=== PATIENT | male | born 1985 | race Caucasian/White ===

== ENCOUNTER 2017-12-14 08:33 | Inpatient (IN) | payer OTHER ==
[2017-12-14] MEDS ORDERED: FENTANYL CITRATE INJ/PF 100 MCG/2 ML AMPUL ONE ×2 (08:49→09:02)
[2017-12-14] MEDS ORDERED: CEFAZOLIN 2 GM/D5W RTU 2 GM/50 ML RTUPB IV ONE (08:49)
[2017-12-14] MEDS ORDERED: FENTANYL CITRATE INJ/PF 100 MCG/2 ML AMPUL IV ONE (08:49)
[2017-12-14] MEDS ORDERED: NORMAL SALINE 1000 ML 1,000 ML IV ONE ×2 (08:50→12:30)
[2017-12-14] MEDS ORDERED: DIPH/PERTUSS(ACELL)/TETANUS VAC/PF 0.5 ML SYR (>=10YO) IM ONE (08:50)
[2017-12-14 09:17] LABS: INTERNATIONAL RATION (INR) 1.02
[2017-12-14 09:19] LABS: ABSOLUTE EOSINOPHILS # (AUTO) 0.3 10^3/uL (0.0-0.6); ABSOLUTE LYMPHOCYTES (AUTO) 1.7 10^3/uL (0.5-4.7); ABSOLUTE MONOCYTES (AUTO) 0.6 10^3/uL (0.1-1.4); ABSOLUTE NEUT (AUTO) 2.4 10^3/uL (1.7-8.2); BASOPHILS % (AUTO) 0.5 % (0-2); EOSINOPHILS % (AUTO) 6.1 % (0-6); HEMATOCRIT 39.4 % (37.9-51.0); HEMOGLOBIN 13.5 g/dL (13.5-17.0); LYMPHOCYTES % (AUTO) 33.7 % (13-45); MEAN CORPUSCULAR HGB CONC 34.4 g/dL (32.0-36.0); MEAN CORPUSCULAR VOLUME 102 fl (80-97); MONOCYTES % (AUTO) 12.6 % (3-13); PLATELET COUNT 344 10^3/uL (150-450); RED BLOOD COUNT 3.87 10^6/uL (4.35-5.55); RED CELL DISTRIBUTION WIDTH 13.1 % (11.5-14.0); SEGMENTED NEUTROPHILS % (AUTO) 47.1 % (42-78); TOTAL CELLS COUNTED % (AUTO) 100 %; WHITE BLOOD COUNT 5.1 10^3/uL (4.0-10.5)
[2017-12-14 09:22] LABS: ALANINE AMINOTRANSFERASE 40 U/L (21-72); ALBUMIN 4.1 g/dL (3.5-5.0); ALKALINE PHOSPHATASE 58 U/L (38-126); ANION GAP 9 (5-19); ASPARTATE AMINO TRANSFERASE 38 U/L (17-59); BILIRUBIN,DIRECT 0.2 mg/dL (0.0-0.4); BILIRUBIN,TOTAL 0.6 mg/dL (0.2-1.3); BLOOD UREA NITROGEN 14 mg/dL (7-20); CARBON DIOXIDE 28 mmol/L (22-30); CHLORIDE 105 mmol/L (98-107); GLUCOSE 122 mg/dL (75-110); SODIUM 141.6 mmol/L (137-145)
[2017-12-14] MEDS ORDERED: FENTANYL CITRATE INJ/PF 100 MCG/2 ML AMPUL IV PRN ×4 (09:48→15:07)
[2017-12-14] MEDS ORDERED: LIDOCAINE 1%/EPINEPHRINE INJ 20 ML VIAL INJ ONE ×2 (09:52→09:55)
[2017-12-14] MEDS ORDERED: HYDROMORPHONE HCL INJ/PF 2 MG/ML AMPULE IV ONE (11:06)
--- NOTE | 2017-12-14 11:09 | ER Document Report ---
ED General - General Chief Complaint: Leg Injury Stated Complaint: LEG INJURY - HPI Patient complains to provider of: Pain to the bilateral lower extremities Onset: Other - 32-year-old man who presents for evaluation after having a low arch concrete slab fall onto his legs. He was trying to pour it over at which time it tipped over and landed over both of his lower extremities. He did not hit his head, did not lose consciousness did not have any pain in the pelvis at this time. He was taken immediately thereafter the emergency room, nothing has seemed to make it better movement seems to make it worse he has not tried to weight-bear since it happened. He has never had anything like this happen before he has not taken anything to try and help with it. - Related Data Allergies/Adverse Reactions: No Known Allergies Allergy (Verified 12/14/17 10:45) Past Medical History - General Information source: Patient - Social History Smoking Status: Current Every Day Smoker Cigarette use (# per day): Yes Chew tobacco use (# tins/day): No Smoking Education Provided: Yes Frequency of alcohol use: Occasional Drug Abuse: None Family History: None - Medical History Medical History: Negative Review of Systems - Review of Systems Musculoskeletal: See HPI -: Yes All other systems reviewed and negative Physical Exam - Vital signs Vitals: Resp BP Pulse Ox 19 108/74 100 12/14/17 08:48 12/14/17 08:48 12/14/17 08:48 - General General appearance: Alert In distress: Mild - HEENT Head: Normocephalic, Atraumatic Eyes: Normal Conjunctiva: Normal Cornea: Normal Extraocular movements intact: Yes - Respiratory Respiratory status: No respiratory distress Chest status: Nontender Breath sounds: Normal Chest palpation: Normal - Cardiovascular Rhythm: Regular Heart sounds: Normal auscultation Murmur: No - Abdominal Inspection: Normal Distension: No distension Bowel sounds: Normal Tenderness: Nontender - Genitourinary Inspection: Normal - Back Back: Normal, Nontender - No cervical midline tenderness no thoracic midline tenderness no lumbar midline tenderness - Extremities General upper extremity: Normal inspection General lower extremity: Other - The lower extremities are symmetric, the pelvis is stable The right quadriceps demonstrates an abrasion in the mid thigh , there is an abrasion over the knee, there is a large avulsion of tissue extending from the lateral malleolus posteriorly towards the Achilles with a large gaping wound. There is a periosteum exposed over the calcaneus. The left lower extremity demonstrates a normal quadriceps normal range of motion at the hip, there is a large evulsion of tissue with macerated edges that is linear approximately 8 cm in length over the mid san, there is marked swelling inferior to the level of the knee, there is intact capillary refill and a strong PT pulse bilaterally as well as brisk capillary refill in all digits. Course - Re-evaluation Re-evalutation: 12/14/17 13:37 This man presented as a trauma evaluation, he is brought back emergently to resuscitation bay. He underwent standard, he was breathing spontaneously with an airway intact and pulses in all extremities appreciable. On secondary survey this patient was identified to have obvious injury to the lower extremities inferior to the level of the knee. X-rays were obtained which demonstrated what appeared to be a tib-fib fracture on the left side which was open as well as a large avulsion of skin along the right ankle. The patient was given narcotic pain medication. Decision was made for this patient to undergo further imaging with definitive x- rays of higher quality than the portable. Patient was transitioned to x-ray suite underwent imaging. Following x-ray imaging lower extremities incision is made to consult orthopedics as it was identified that is isolated injuries seem to be only bony. Spoke to Dr. Montero jewelry salesperson who agreed that this patient would need emergent fixation of his tibia on the left side. During this time the patient's compartment continued remained soft though he was having some pain. He had pulses appreciable in both extremities on reexamination. Patient was subsequently consented and taken to the operating room. During this time he received 2 g of Ancef 2 L of normal saline as well as a tetanus update. He had a repaired right heel injury. Both his extremities were splinted in place. At the time of admission he is hemodynamically stable. - Vital Signs Vital signs: Temp Pulse Resp BP Pulse Ox 97.3 F 13 106/64 99 12/14/17 14:01 12/14/17 14:01 12/14/17 14:00 12/14/17 14:01 - Laboratory Result Diagrams: 12/14/17 08:35 12/14/17 08:35 Laboratory results interpreted by me: 12/14/17 12/14/17 08:35 08:35 RBC 3.87 L MCV 102 H MCH 35.0 H Eosinophils % 6.1 H Glucose 122 H Procedures - Laceration/Wound Repair Right Lateral Ankle Time completed: 02:00 Wound length (cm): 12 Wound's Depth, Shape: Irregular, Flap Laceration pre-procedure: Sterile PPE donned, Sterile drapes applied Anesthetic type: 1% Lidocaine w/epi Volume Anesthetic (mLs): 10 Wound explored: Clean, No foreign body removed Irrigated w/ Saline (mLs): 2,000 Wound Debrided: Minimal Wound Repaired With: Sutures Suture Size/Type: 4:0 Number of Sutures: 12 Post-procedure NV exam normal: Yes Complications: No Discharge - Discharge Clinical Impression: Tibia fracture, Ankle fracture, bimalleolar, closed, Contusion of right ankle Condition: Good Disposition: ADMITTED INPATIENT Admitting Provider: marisol Unit Admitted: OR
--- NOTE | 2017-12-14 11:11 | RADIOLOGY REPORT (SQ) ---
EXAM DESCRIPTION: ANKLE RIGHT COMPLETE COMPLETED DATE/TIME: 12/14/2017 10:53 am REASON FOR STUDY: crush injury COMPARISON: None. NUMBER OF VIEWS: Three views. TECHNIQUE: AP, lateral, and oblique radiographic images acquired of the right ankle. LIMITATIONS: None. FINDINGS: MINERALIZATION: Normal. BONES: There is some lucency in the calcaneus, but no cortical disruption is appreciated. JOINTS: No effusions. SOFT TISSUES: Soft tissue injury. OTHER: No other significant finding. IMPRESSION: There is some lucency in the calcaneus. This may be secondary to soft tissue injury ove rlying it. Consider CT if there is clinical concern for calcaneal fracture. TECHNICAL DOCUMENTATION: JOB ID: [id number] [employer]- All Rights Reserved Reading location - IP/workstation name: [email or web address]
--- NOTE | 2017-12-14 11:14 | RADIOLOGY REPORT (SQ) ---
EXAM DESCRIPTION: TIB FIB BILAT 2 VIEWS COMPLETED DATE/TIME: 12/14/2017 10:53 am REASON FOR STUDY: Trauma COMPARISON: None. NUMBER OF VIEWS: Two views. TECHNIQUE: Two radiographic images acquired of the right and left tibia and fibula to include the kn ee and ankle in at least one projection. LIMITATIONS: None. FINDINGS: RIGHT: MINERALIZATION: Normal. BONES: No acute fracture or dislocation. No worrisome bone lesions. SOFT TISSUES: There is a laceration over the right dorsal and lateral ankle, without radiopaque forei gn body. There is gauze over the open wound. OTHER: No other significant finding. LEFT: MINERALIZATION: Normal. BONES: Acute nonangulated nondisplaced spiral fracture distal left tibia diaphysis extending through the metaphysis into the articular surface. Small amount of air in the tibiotalar joint. There is also an acute transverse fracture through the mid diaphysis left tibia, nonangulated nondisp laced. Acute transverse fracture distal fibular metaphysis without gross malalignment at the ankle mortise SOFT TISSUES: There is a soft tissue wound through the medial and posterior calf soft tissues with ex tensive soft tissue air. There is air in the tibiotalar joint on the lateral view. Minimal debris i s present over the lateral aspect mid 3rd calf, could represent debris on the patient's skin. OTHER: No other significant finding. IMPRESSION: No acute fracture over the right tibia/ fibula. Acute fractures of the left tibial mid diaphysis, and left tibia distal diaphysis/metaphysis with ext ension into the tibial articular surface and intra-articular air Hairline nondisplaced acute nondisplaced nonangulated distal fibular fracture TECHNICAL DOCUMENTATION: JOB ID: [id number] [employer]- All Rights Reserved Reading location - IP/workstation name: [email or web address]
--- NOTE | 2017-12-14 11:16 | RADIOLOGY REPORT (SQ) ---
EXAM DESCRIPTION: ANKLE LEFT COMPLETE COMPLETED DATE/TIME: 12/14/2017 10:53 am REASON FOR STUDY: crush injury COMPARISON: Left tibia and fibula two views same date NUMBER OF VIEWS: Three views. TECHNIQUE: AP, lateral, and oblique radiographic images acquired of the left ankle. LIMITATIONS: None. FINDINGS: MINERALIZATION: Normal. BONES: Acute spiral fracture distal left tibial diaphysis and metaphysis, with extension into the tib iotalar joint, tibial articular surface. There is a small amount of air in the tibiotalar joint. Acute transverse nondisplaced distal fibular metaphysis fracture. Best shown on the AP view marked w ith an arrow. JOINTS: Left ankle joint effusion with air bubbles. No malalignment at the ankle mortise SOFT TISSUES: Medial left calf soft tissue air. No radiopaque foreign body OTHER: No other significant finding. IMPRESSION: Acute spiral fracture distal left tibial diaphysis and metaphysis with extension into th e tibial plafond. Grossly nondisplaced nonangulated. Intra-articular air at the ankle joint without disruption of the ankle mortise alignment Acute transverse nondisplaced distal fibular metaphysis fracture TECHNICAL DOCUMENTATION: JOB ID: [id number] [employer]- All Rights Reserved Reading location - IP/workstation name: [email or web address]
--- NOTE | 2017-12-14 11:18 | RADIOLOGY REPORT (SQ) ---
EXAM DESCRIPTION: FEMUR RIGHT COMPLETED DATE/TIME: 12/14/2017 10:53 am REASON FOR STUDY: crush injury COMPARISON: None. NUMBER OF VIEWS: Two views. TECHNIQUE: Two radiographic images acquired of the right femur to include hip and knee in at least o ne projection. LIMITATIONS: None. FINDINGS: MINERALIZATION: Normal. BONES: No acute fracture. No worrisome bone lesions. SOFT TISSUES: No obvious swelling or foreign body. OTHER: No other significant finding. IMPRESSION: NEGATIVE STUDY OF THE RIGHT FEMUR. NO RADIOGRAPHIC EVIDENCE OF ACUTE INJURY. TECHNICAL DOCUMENTATION: JOB ID: [id number] [employer]- All Rights Reserved Reading location - IP/workstation name: [email or web address]
--- NOTE | 2017-12-14 11:21 | RADIOLOGY REPORT (SQ) ---
EXAM DESCRIPTION: FOOT LEFT COMPLETE COMPLETED DATE/TIME: 12/14/2017 10:53 am REASON FOR STUDY: crush injury COMPARISON: Left tibia and fibula films, left ankle films same date NUMBER OF VIEWS: Three views. TECHNIQUE: AP, lateral and oblique radiographic images acquired of the left foot. LIMITATIONS: None. FINDINGS: MINERALIZATION: Normal. BONES: Acute distal tibia and fibula fractures, please see ankle films for further details. The talu s, calcaneus, tarsal bones, metatarsals and phalanges are intact. JOINTS: There is air and fluid in the tibiotalar joint SOFT TISSUES: No soft tissue swelling. No foreign body. OTHER: No other significant finding. IMPRESSION: Distal left tibia and fibula acute fractures, please see left ankle and left tibia/fibul a of report from earlier today. Small amount of air and fluid in the tibiotalar joint No acute displaced fracture of the bones of the left foot TECHNICAL DOCUMENTATION: JOB ID: [id number] [employer]- All Rights Reserved Reading location - IP/workstation name: [email or web address]-RR
--- NOTE | 2017-12-14 11:22 | RADIOLOGY REPORT (SQ) ---
EXAM DESCRIPTION: FOOT RIGHT COMPLETE COMPLETED DATE/TIME: 12/14/2017 10:53 am REASON FOR STUDY: crush injury COMPARISON: Right tibia and fibula films same date NUMBER OF VIEWS: Three views. TECHNIQUE: AP, lateral and oblique radiographic images acquired of the right foot. LIMITATIONS: None. FINDINGS: MINERALIZATION: Normal. BONES: No acute fracture or dislocation. No worrisome bone lesions. JOINTS: No effusions. SOFT TISSUES: There is a soft tissue laceration near the Achilles attachment to the calcaneus. No ra diopaque foreign body. There is soft tissue gas tracking along the lateral and plantar aspect of the right foot soft tissues. OTHER: No other significant finding. IMPRESSION: No acute fracture. Soft tissue laceration near the Achilles attachment to the calcaneus without radiopaque foreign body. Right foot soft tissue gas is present. TECHNICAL DOCUMENTATION: JOB ID: [id number] [employer]- All Rights Reserved Reading location - IP/workstation name: [email or web address]
[2017-12-14] MEDS ORDERED: SUCCINYLCHOLINE CHLORIDE INJ 200 MG/10 ML VIAL ONE (11:56)
[2017-12-14] MEDS ORDERED: MORPHINE SULFATE 10 MG/ML INJ IV PRN ×3 (13:32→18:05)
[2017-12-14] MEDS ORDERED: BUPIVACAINE HCL 0.5 % INJ/PF 30 ML SDV ONE ×2 (13:48→14:47)
[2017-12-14] MEDS ORDERED: FENTANYL CITRATE INJ/PF 250 MCG/5 ML AMPULE ONE (13:59)
[2017-12-14] MEDS ORDERED: KETOROLAC TROMETHAMINE 60 MG/2 ML SDV ONE (13:59)
[2017-12-14] MEDS ORDERED: LIDOCAINE 2% INJ-PF (20 MG/ML) 10 ML AMPUL ONE (13:59)
[2017-12-14] MEDS ORDERED: PROPOFOL INJ 200 MG/20 ML VIAL IV ONE (14:00)
[2017-12-14] MEDS ORDERED: ACETAMINOPHEN 1,000 MG/100 ML RTUPB IV ONE (14:00)
[2017-12-14] MEDS ORDERED: ONDANSETRON HCL INJ/PF 4 MG/2 ML SDV ONE (14:00)
[2017-12-14] MEDS ORDERED: MIDAZOLAM 2 MG/2 ML INJ ONE (14:00)
[2017-12-14] MEDS ORDERED: DEXAMETHASONE SOD PHOSPHATE INJ 4 MG/1 ML VIAL ONE (14:00)
--- NOTE | 2017-12-14 14:28 | PDOC H&P ---
History of Present Illness Admission Date/PCP: 12/14/17 11:26 Patient complains of: Left leg pain, right foot pain History of Present Illness: DIAZ MARR is a 32 year old male who was at work when a ow arch concrete slab mold fell onto his bilateral lower extremities causing a crush injury. Patient was brought by EMS. Was seen and evaluated by the emergency room which demonstrated fractures of his left lower extremity with an open wound anteriorly along with a open wound along the right foot. Patient denied pelvic discomfort. Denied abdominal discomfort. No headache dizziness or loss of consciousness. While in the emergency room patient received tetanus and Ancef the wounds were irrigated and patient was placed in a splint on his left and the right foot wound was reapproximated and placed in a splint. Patient states his pain is currently controlled with Dilaudid. He does have some numbness in the left and right foot. Pain initially was 10/10. Social History Information Source: Patient Smoking Status: Current Every Day Smoker Frequency of Alcohol Use: Rare Hx Recreational Drug Use: No Hx Prescription Drug Abuse: No Family History Parental Family History Reviewed: No Children Family History Reviewed: No Sibling(s) Family History Reviewed.: No Medication/Allergy Home Medications: No Home Medications 12/14/17 Allergies/Adverse Reactions: No Known Allergies Allergy (Verified 12/14/17 10:45) Review of Systems Constitutional: ABSENT: chills, fever(s), headache(s), weight gain, weight loss Eyes: ABSENT: visual disturbances Ears: ABSENT: hearing changes Cardiovascular: ABSENT: chest pain, dyspnea on exertion, edema, orthropnea, palpitations Respiratory: ABSENT: cough, hemoptysis Gastrointestinal: ABSENT: abdominal pain, constipation, diarrhea, hematemesis, hematochezia, nausea, vomiting Genitourinary: ABSENT: dysuria, hematuria Musculoskeletal: PRESENT: as per HPI Integumentary: ABSENT: rash, wounds Neurological: ABSENT: abnormal gait, abnormal speech, confusion, dizziness, focal weakness, syncope Psychiatric: ABSENT: anxiety, depression, homidical ideation, suicidal ideation Endocrine: ABSENT: cold intolerance, heat intolerance, menstrual abnormalities, polydipsia, polyuria Hematologic/Lymphatic: ABSENT: easy bleeding, easy bruising, lymphadenopathy Physical Exam Vital Signs: Temp Pulse Resp BP Pulse Ox 16 120/82 100 12/14/17 10:01 12/14/17 10:01 12/14/17 10:01 General appearance: PRESENT: no acute distress, well-developed, well-nourished Head exam: PRESENT: atraumatic, normocephalic Eye exam: PRESENT: conjunctiva pink, EOMI, PERRLA. ABSENT: scleral icterus Ear exam: PRESENT: normal external ear exam Mouth exam: PRESENT: moist, tongue midline Neck exam: PRESENT: full ROM. ABSENT: carotid bruit, JVD, lymphadenopathy, thyromegaly Respiratory exam: PRESENT: unlabored Cardiovascular exam: PRESENT: RRR. ABSENT: diastolic murmur, rubs, systolic murmur Pulses: PRESENT: normal dorsalis pedis pul, +2 pedal pulses bilateral Vascular exam: PRESENT: normal capillary refill GI/Abdominal exam: PRESENT: normal bowel sounds, soft. ABSENT: distended, guarding, mass, organolmegaly, rebound, tenderness Rectal exam: PRESENT: deferred Musculoskeletal exam: PRESENT: other Neurological exam: PRESENT: alert, awake, oriented to person, oriented to place , oriented to time, oriented to situation, CN II-XII grossly intact. ABSENT: motor sensory deficit Psychiatric exam: PRESENT: appropriate affect, normal mood. ABSENT: homicidal ideation, suicidal ideation Skin exam: PRESENT: abrasion - Left lower extremity: Splint clean/dry/intact splint not removed given high risk of infection with open fracture. intact flexion/extension of the toes. No sensory deficits. Cap refill less than 2 seconds. Dorsalis pedis pulse 2+. Compartments soft and compressible no sign of compartment syndrome. Right lower extremity: C-shaped laceration on the lateral aspect of the calcaneus down to periosteum but no evidence of fracture. No involvement of the Achilles tendon appreciated. Intact plantar flexion/ dorsiflexion. No sensory deficits. Bilateral upper extremities: No tenderness to palpation. Full range of motion., dry, intact, warm. ABSENT: cyanosis, rash Results Impressions: Tibia/Fibula X-Ray 12/14/17 00:00 IMPRESSION: No acute fracture over the right tibia/ fibula. Acute fractures of the left tibial mid diaphysis, and left tibia distal diaphysis/metaphysis with extension into the tibial articular surface and intra- articular air Hairline nondisplaced acute nondisplaced nonangulated distal fibular fracture Ankle X-Ray 12/14/17 08:47 IMPRESSION: Acute spiral fracture distal left tibial diaphysis and metaphysis with extension into the tibial plafond. Grossly nondisplaced nonangulated. Intra-articular air at the ankle joint without disruption of the ankle mortise alignment Acute transverse nondisplaced distal fibular metaphysis fracture Femur X-Ray 12/14/17 08:47 IMPRESSION: NEGATIVE STUDY OF THE RIGHT FEMUR. NO RADIOGRAPHIC EVIDENCE OF ACUTE INJURY. Foot X-Ray 12/14/17 08:47 IMPRESSION: No acute fracture. Soft tissue laceration near the Achilles attachment to the calcaneus without radiopaque foreign body. Right foot soft tissue gas is present. Status: Image reviewed by me - Bilateral tibia-fibula radiographs demonstrate segmental tibial shaft fracture with posterior malleolus fracture. No evidence of medial or tibia-fibula clear space widening. No evidence of fracture right tibia-fibula. Bilateral ankle radiographs demonstrate nondisplaced transverse fracture of the distal fibula with associated posterior malleolar fracture no evidence of medial space widening. Bilateral hip radiographs demonstrate no evidence of fracture or dislocation. Assessment & Plan - Diagnosis (1) Fracture, posterior malleolus Qualifiers: Encounter type: initial encounter Fracture type: closed Is this a current diagnosis for this admission?: Yes (2) Open left tibial fracture Qualifiers: Encounter type: initial encounter Tibia location: shaft Open fracture type: open type I or II Fracture morphology: segmental Is this a current diagnosis for this admission?: Yes Plan: I have discussed treatment options with the patient he adequately relieved Ancef received Ancef and tetanus for his left open tibia fracture given the segmental nature of his fracture and increased risk of fracture instability I have recommended operative treatment which includes irrigation and debridement of the left tibia with intramedullary nail. Concomitantly we will proceed with open reduction total fixation of the left ankle including the posterior malleolus and possible distal fibula pending intraoperative instability. Risks and benefits of the surgical procedure have been explained to the patient risks including neurovascular risk, postoperative pain, postoperative knee pain, posttraumatic arthritis, infection, need for future surgical intervention. Also given the tibia fracture patient understands this is high risk for compartment syndrome and fasciotomies may be required either intraoperatively or in the future if compartment syndrome develops. As for the patient's right foot wound it was reapproximated by the emergency room will continue to monitor but patient was placed in a splint today. Anticipate 72 hours of antibiotics and possible discharge to home pending patient's pain control. Patient has verbalized understanding of the current plan and consented for the above procedure. Also discussed the importance of tobacco cessation and its negative effects on overall health, wound and fracture healing (3) Laceration of right foot Is this a current diagnosis for this admission?: Yes
[2017-12-14] MEDS ORDERED: MEPERIDINE HCL/PF INJ 25 MG/1 ML DISP.SYRIN IV PRN (15:07)
[2017-12-14] MEDS ORDERED: PROMETHAZINE HCL INJ 25 MG/1 ML VIAL IV PRN ×2 (15:07)
[2017-12-14] MEDS ORDERED: DIPHENHYDRAMINE HCL 50 MG/ML VIAL IV PRN (15:07)
[2017-12-14] MEDS ORDERED: OXYCODONE-ACETAMINOPHEN 5-325 MG TABLET PO PRN ×2 (15:07)
[2017-12-14] MEDS ORDERED: CEFAZOLIN INJ 1 GM VIAL ONE (15:25)
[2017-12-14] MEDS ORDERED: ZOLPIDEM TARTRATE 5 MG TABLET PO PRN (18:01)
--- NOTE | 2017-12-14 18:01 | Operative Report ---
Operative Report DATE OF SURGERY: 12/14/17 PREOPERATIVE DIAGNOSIS: Left grade II open tibial shaft fracture. Left closed distal intra-articular tibial fracture. Left nondisplaced distal fibula fracture POSTOPERATIVE DIAGNOSIS: Same OPERATION: 1. Irrigation debridement left grade II open tibia fracture. 2. Intramedullary nail left tibial shaft fracture. 3. open reduction internal fixation posterior malleolus fracture. 4. Nonoperative treatment lateral malleolus fracture SURGEON: PARESH SELBY ANESTHESIA: GA COMPLICATIONS: None ESTIMATED BLOOD LOSS: 60 cc PROCEDURE: Indication for above procedure: 32-year-old male who sustained a crush injury to his left and right lower extremities after a cement slab molding fell. Patient was brought to emergency room where x-rays demonstrated a fracture of the tibial shaft with a open wound and associated distal fibular fracture and spiral distal tibia fracture with intra-articular extension. In the emergency room patient received Ancef and tetanus in area was irrigated and placed in a splint. Risks and benefits of operative versus nonoperative intervention were explained to the patient patient verbalized understanding consented for the operative procedure. Procedure in detail: Procedure In Detail: Patient was seen and evaluated in the preoperative holding area. The left lower extremity extremity was initialized and marked. Patient received additional 1 g of Ancef IV for bacterial prophylaxis. Patient was taken back to the operative room where transferred to the operative table and placed under general anesthesia. Once they were adequately anesthetized a nonsterile tourniquet was placed on the lower extremity. A surgical team debriefing was performed ensuring all instrumentation was available, the surgical procedure was discussed with possible concerns reviewed. The lower extremity was prepped with Betadine and draped in a sterile fashion. A timeout was done identifying correct patient, procedure and extremity everyone in attendance agree with this and verbalized no concerns. The extremity was exsanguinated the tourniquet was inflated to 300 mmHg. Medially at the transverse fracture site there was a 7 cm L-shaped laceration which connected with the deep bone involving a portion of the medial gastroc muscle. This area was copiously irrigated with normal saline. There was not gross contamination appreciated. Under C-arm fluoroscopy the posterior malleolus fragment was identified. A small stab incision was made anterior and blunt dissection was performed to the anterior surface of the tibia. Through a small poke hole posterior lateral reduction tenaculum was placed to reduce the posterior malleolus fragment reduction was obtained with no evidence of intra-articular diastases and intra- articular step-off less than 1 mm I then placed a guidewire through the drill guide to avoid irritation surrounding soft tissues and measured a 45 mm screw thus a 4.0 mm partially-threaded cancellus screws placed which provided interfragmentary compression to the posterior malleolar fragment there is no evidence of fragment instability. Longitudinal skin incision was made over the patellar tendon. Blunt dissection was performed. The peritenon was opened and the patellar tendon split midline. Under direct visualization the anterior aspect of the tibial plateau was identified and the guidewire for a [employer] T2 tibial IM nail was advanced centralized with a intramedullary canal on AP view and aiming slightly obliquely and posterior on lateral view. Once this was confirmed the opening reamer was utilized. The ball-tipped guidewire was then inserted and passed to the distal tibia central on AP and lateral view. The tourniquet was then deflated any bleeding was controlled with cautery. Reaming began with a 9.5 mm reamer reaming up to a 12 mm reamer. Given the associated fracture distally decision was made to proceed with a 10 mm nail to avoid displacement of the distal fracture. The nail was advanced past the transverse tibial fracture and oblique tibial fracture which extended into the articular surface C-arm fluoroscopy was obtained throughout insertion to avoid displacement of the articular fracture. AP and lateral views were then obtained confirming appropriate nail placement and height. The aiming arm was then placed proximally a small stab incision was made along the medial aspect and a medial to lateral static screw was placed. A second stab incision was made an oblique medial to lateral screw was placed in the proximal nail. The aiming arm was removed and multiple C-arm views were obtained confirming trajectory through the nail. While obtaining perfect circles a small stab incision was made distally blunt dissection was performed and a hemostat was used during drilling of the anterior to posterior screw the appropriate size 5 mm distal locking screw was placed. Via lateral perfect circles were obtained and 2x medial to lateral 5 mm distal locking screws were placed the most proximal distal locking screw providing interfragmentary compression to the fracture line within the sagittal plane. Final C-arm fluoroscopy was obtained proximally distally and at the fracture site confirming adequate reduction and appropriate size distal and proximal locking screws. Under live C-arm fluoroscopy external rotation stress was applied to the distal tibia to assure adequate stability of the syndesmosis articular tibial fracture and distal lateral malleolar fracture once this was confirmed I do not feel additional fixation within the fibula was required. The wounds were then copiously irrigated with normal saline. The patellar tendon was closed with interrupted 0 Vicryl suture. Subcutaneous tissues were closed with 4-0 Monocryl suture. Skin incisions were closed with derek. The medial open fracture wound was debrided any nonviable skin and muscle were excised and wound once again irrigated down to bone. Skin incision was closed with interrupted 3-0 nylon suture. Compartments were soft and compressible with minimal swelling no sign of compartment syndrome clinically. 30 cc of 0.5 % Marcaine without epinephrine was injected for postoperative pain control. Patient was placed in a well-padded sugar tong splint. Sponge counts, instrument counts, needle counts counts were correct. Patient was then awoken from anesthesia. Transferred from the operating room table to the operating room stretcher. There was no intraoperative complications patient tolerated procedure well stable to PACU. Postoperative plan: Patient will be admitted for 48 hours of IV antibiotics and then transitioned to p.o. antibiotics. Given his wound in his right lower extremity he will require wheelchair transportation until that wound is healed. Anticipate 6-10 weeks of nonweightbearing in the left lower extremity given the patient's tobacco history and nature of fracture. At follow-up visit in my office in 2 weeks patient will have radiographs of his left ankle, tibia-fibula and be placed in a short leg cast and then transition to a pneumatic walking 6 weeks postoperatively.
[2017-12-14] MEDS ORDERED: ONDANSETRON 4 MG TAB.RAPDIS PO PRN (18:05)
[2017-12-14] MEDS ORDERED: OXYCODONE HCL IR 5 MG TABLET PO PRN (18:05)
--- NOTE | 2017-12-14 18:51 | RADIOLOGY REPORT (SQ) ---
EXAM DESCRIPTION: NO CHG FLUORO; TIBIA FIBULA LEFT COMPLETED DATE/TIME: 12/14/2017 6:12 pm REASON FOR STUDY: LT TIB NAILING COMPARISON: None. FLUOROSCOPY TIME: 3.2 minutes 14 Images saved to PACS LIMITATIONS: None. PROCEDURE: Left tibial nailing FINDINGS: Images obtained with fluoro document placement of a long medullary lucinda through the tibia w ith screws proximally and distally. IMPRESSION: Left tibial nailing. Refer to operative note for further information. COMMENT: PQRS 6045F: Fluoroscopy time of the procedure is documented in the report. TECHNICAL DOCUMENTATION: JOB ID: [id number] [employer]- All Rights Reserved Reading location - IP/workstation name: [email or web address]
--- NOTE | 2017-12-14 18:51 | RADIOLOGY REPORT (SQ) ---
EXAM DESCRIPTION: NO CHG FLUORO; TIBIA FIBULA LEFT COMPLETED DATE/TIME: 12/14/2017 6:12 pm REASON FOR STUDY: LT TIB NAILING COMPARISON: None. FLUOROSCOPY TIME: 3.2 minutes 14 Images saved to PACS LIMITATIONS: None. PROCEDURE: Left tibial nailing FINDINGS: Images obtained with fluoro document placement of a long medullary lucinda through the tibia w ith screws proximally and distally. IMPRESSION: Left tibial nailing. Refer to operative note for further information. COMMENT: PQRS 6045F: Fluoroscopy time of the procedure is documented in the report. TECHNICAL DOCUMENTATION: JOB ID: [id number] [employer]- All Rights Reserved Reading location - IP/workstation name: [email or web address]
[2017-12-14] MEDS: OXYCODONE HCL SR 10 MG TABLET PO SCH (21:00)
[2017-12-14] MEDS: KETOROLAC TROMETHAMINE INJ/PF 30 MG/1 ML SDV IV SCH (23:34)
[2017-12-14] MEDS: CEFAZOLIN 2 GM/D5W RTU 2 GM/50 ML RTUPB IV SCH (23:34)
[2017-12-15] MEDS ORDERED: ACETAMINOPHEN 1,000 MG/100 ML RTUPB IV ONE (00:05)
[2017-12-15] MEDS: MORPHINE SULFATE 10 MG/ML INJ IV PRN ×3 (02:18→18:33)
[2017-12-15 04:39] LABS: HEMATOCRIT 32.6 % (37.9-51.0); MEAN CORPUSCULAR HEMOGLOBIN 35.4 pg (27.0-33.4); MEAN CORPUSCULAR HGB CONC 34.8 g/dL (32.0-36.0); MEAN CORPUSCULAR VOLUME 102 fl (80-97); PLATELET COUNT 250 10^3/uL (150-450); RED CELL DISTRIBUTION WIDTH 13.2 % (11.5-14.0); WHITE BLOOD COUNT 8.1 10^3/uL (4.0-10.5)
[2017-12-15 04:51] LABS: HEMOGLOBIN 11.3 g/dL (13.5-17.0)
[2017-12-15 04:56] LABS: ANION GAP 8 (5-19); BLOOD UREA NITROGEN 12 mg/dL (7-20); CARBON DIOXIDE 22 mmol/L (22-30); CHLORIDE 107 mmol/L (98-107); GLUCOSE 123 mg/dL (75-110); POTASSIUM 4.4 mmol/L (3.6-5.0); SODIUM 136.8 mmol/L (137-145)
[2017-12-15] MEDS: CEFAZOLIN 2 GM/D5W RTU 2 GM/50 ML RTUPB IV SCH ×3 (06:31→18:34)
[2017-12-15] MEDS: KETOROLAC TROMETHAMINE INJ/PF 30 MG/1 ML SDV IV SCH ×4 (06:32→23:59)
--- NOTE | 2017-12-15 10:10 | PDOC PROGRESS REPORT ---
Subjective Progress Note for:: 12/15/17 Subjective:: Patient lying in bed comfortably. Patient has been taking oxycodone and morphine with relief. Pain tolerable. Denies fever chills or sweats. Reason For Visit: LEFT TIBIA FRACTURES Physical Exam Vital Signs: Temp Pulse Resp BP Pulse Ox 97.6 F 65 16 97/47 L 99 12/15/17 08:25 12/15/17 08:25 12/15/17 08:25 12/15/17 08:25 12/15/17 08:25 Intake & Output 12/14/17 12/15/17 12/16/17 06:59 06:59 06:59 Intake Total 5050 50 Output Total 760 Balance 4290 50 Weight 55.4 kg Musculoskeletal exam: PRESENT: other - Right lower extremity: Dressing removed. L-shaped laceration on the lateral aspect of the heel intact. Mild bloody drainage no erythema or dehiscence. Intact plantar flexion/dorsiflexion. Hypoesthesia distal to the laceration site. Notable ecchymosis along the dorsum of the foot. Dorsalis pedis pulse 2+. Left lower extremity: Shadowing along the posterior aspect of the splint. Intact plantar flexion/dorsiflexion. No pain with passive stretch. Cap refill less than 2 seconds. No sensory deficits along the digits. Results Laboratory Results: 12/15/17 04:00 12/15/17 04:00 12/15/17 12/15/17 04:00 04:00 WBC 8.1 RBC 3.20 L Hgb 11.3 L D Hct 32.6 L MCV 102 H MCH 35.4 H MCHC 34.8 RDW 13.2 Plt Count 250 Sodium 136.8 L Potassium 4.4 Chloride 107 Carbon Dioxide 22 Anion Gap 8 BUN 12 Creatinine 0.84 Est GFR ( Amer) > 60 Est GFR (Non-Af Amer) > 60 Glucose 123 H Calcium 8.0 L Impressions: Fluoroscopy 12/14/17 00:00 IMPRESSION: Left tibial nailing. Refer to operative note for further information. Tibia/Fibula X-Ray 12/14/17 00:00 IMPRESSION: Left tibial nailing. Refer to operative note for further information. Ankle X-Ray 12/14/17 08:47 IMPRESSION: Acute spiral fracture distal left tibial diaphysis and metaphysis with extension into the tibial plafond. Grossly nondisplaced nonangulated. Intra-articular air at the ankle joint without disruption of the ankle mortise alignment Acute transverse nondisplaced distal fibular metaphysis fracture Femur X-Ray 12/14/17 08:47 IMPRESSION: NEGATIVE STUDY OF THE RIGHT FEMUR. NO RADIOGRAPHIC EVIDENCE OF ACUTE INJURY. Foot X-Ray 12/14/17 08:47 IMPRESSION: No acute fracture. Soft tissue laceration near the Achilles attachment to the calcaneus without radiopaque foreign body. Right foot soft tissue gas is present. Assessment & Plan - Diagnosis (1) Fracture, posterior malleolus Qualifiers: Encounter type: initial encounter Fracture type: closed Is this a current diagnosis for this admission?: Yes (2) Open left tibial fracture Qualifiers: Encounter type: initial encounter Tibia location: shaft Open fracture type: open type I or II Fracture morphology: segmental Is this a current diagnosis for this admission?: Yes Plan: Postop day #1 status post irrigation and debridement with intramedullary nail left open tibia fracture, ORIF posterior malleolus 1. Physical therapy patient will begin toe-touch weightbearing on the right lower extremity with nonweightbearing on the left lower extremity. Anticipate once his foot wound on the right heels may return to weightbearing as tolerated. 2. Pain control oxycodone and morphine 3. IV antibiotics patient receiving Ancef for the next 48 hours then transition to Keflex 4. Xarelto for DVT prophylaxis DC home on aspirin 5. DC home possible in 24 hours patient will require wheelchair and then transition to crutches and/or walker (3) Laceration of right foot Is this a current diagnosis for this admission?: Yes
[2017-12-15] MEDS: RIVAROXABAN 10 MG TABLET PO SCH (11:26)
[2017-12-15] MEDS: OXYCODONE HCL SR 10 MG TABLET PO SCH ×2 (11:27→22:11)
[2017-12-15] MEDS: CELECOXIB 200 MG CAPSULE PO SCH ×2 (11:31→18:33)
[2017-12-16 05:29] LABS: HEMATOCRIT 28.5 % (37.9-51.0); MEAN CORPUSCULAR HEMOGLOBIN 35.7 pg (27.0-33.4); MEAN CORPUSCULAR VOLUME 102 fl (80-97); PLATELET COUNT 215 10^3/uL (150-450); RED BLOOD COUNT 2.79 10^6/uL (4.35-5.55); RED CELL DISTRIBUTION WIDTH 13.4 % (11.5-14.0); WHITE BLOOD COUNT 6.1 10^3/uL (4.0-10.5)
[2017-12-16] MEDS: CEFAZOLIN 2 GM/D5W RTU 2 GM/50 ML RTUPB IV SCH ×5 (05:55→23:05)
[2017-12-16] MEDS: KETOROLAC TROMETHAMINE INJ/PF 30 MG/1 ML SDV IV SCH ×3 (05:56→17:58)
[2017-12-16] MEDS: OXYCODONE HCL SR 10 MG TABLET PO SCH (10:31)
[2017-12-16] MEDS: RIVAROXABAN 10 MG TABLET PO SCH (10:32)
[2017-12-16] MEDS: CELECOXIB 200 MG CAPSULE PO SCH ×2 (10:32→17:59)
--- NOTE | 2017-12-16 13:53 | PDOC PROGRESS REPORT ---
Subjective Subjective:: Patient lying in bed comfortably. Patient has been taking oxycodone and morphine with relief. Pain tolerable. Denies fever chills or sweats. Reason For Visit: LEFT TIBIA FRACTURES Physical Exam Vital Signs: Temp Pulse Resp BP Pulse Ox 97.4 F 76 16 95/51 L 95 12/16/17 08:00 12/16/17 08:00 12/16/17 08:00 12/16/17 08:00 12/16/17 08:00 Intake & Output 12/15/17 12/16/17 12/17/17 06:59 06:59 06:59 Intake Total 5050 2600 50 Output Total 760 1275 Balance 4290 1325 50 Weight 55.4 kg 72.9 kg Musculoskeletal exam: PRESENT: other - Right foot: Dressing clean/dry/intact no erythema or drainage. Intact plantar flexion/dorsiflexion. Swelling and ecchymosis dorsally along the foot. No sensory deficits. Dorsalis pedis pulse 2+. Left lower extremity: Nixon bandage change today there was some blood-tinged along the posterior aspect of the heel. Intact plantar flexion/dorsiflexion. Cap refill less than 2 seconds. Dorsalis pedis pulse 2+. Compartments soft and compressible no sign of compartment syndrome. No pain with passive stretch. No sensory deficits Results Laboratory Results: 12/16/17 05:10 12/15/17 04:00 12/16/17 05:10 WBC 6.1 RBC 2.79 L Hgb 10.0 L Hct 28.5 L MCV 102 H MCH 35.7 H MCHC 35.0 RDW 13.4 Plt Count 215 Impressions: Fluoroscopy 12/14/17 00:00 IMPRESSION: Left tibial nailing. Refer to operative note for further information. Tibia/Fibula X-Ray 12/14/17 00:00 IMPRESSION: Left tibial nailing. Refer to operative note for further information. Ankle X-Ray 12/14/17 08:47 IMPRESSION: Acute spiral fracture distal left tibial diaphysis and metaphysis with extension into the tibial plafond. Grossly nondisplaced nonangulated. Intra-articular air at the ankle joint without disruption of the ankle mortise alignment Acute transverse nondisplaced distal fibular metaphysis fracture Femur X-Ray 12/14/17 08:47 IMPRESSION: NEGATIVE STUDY OF THE RIGHT FEMUR. NO RADIOGRAPHIC EVIDENCE OF ACUTE INJURY. Foot X-Ray 12/14/17 08:47 IMPRESSION: No acute fracture. Soft tissue laceration near the Achilles attachment to the calcaneus without radiopaque foreign body. Right foot soft tissue gas is present. Assessment & Plan - Diagnosis (1) Fracture, posterior malleolus Qualifiers: Encounter type: initial encounter Fracture type: closed Is this a current diagnosis for this admission?: Yes (2) Open left tibial fracture Qualifiers: Encounter type: initial encounter Tibia location: shaft Open fracture type: open type I or II Fracture morphology: segmental Is this a current diagnosis for this admission?: Yes Plan: Postop day #2 status post irrigation and debridement with intramedullary nail left open tibia fracture, ORIF posterior malleolus 1. Physical therapy patient will begin toe-touch weightbearing on the right lower extremity with nonweightbearing on the left lower extremity. Anticipate once his foot wound on the right heels may return to weightbearing as tolerated. 2. Pain control oxycodone and morphine 3. IV antibiotics patient receiving Ancef for the next 24 hours then transition to Keflex 4. Xarelto for DVT prophylaxis DC home on aspirin 5. DC home possible on 12/17/17 once bedside commode and wheelchair have been obtained given patient's bilateral lower extremity injury. (3) Laceration of right foot Is this a current diagnosis for this admission?: Yes
[2017-12-16] MEDS: MORPHINE SULFATE 10 MG/ML INJ IM PRN ×2 (18:51→23:03)
[2017-12-17 05:17] LABS: HEMATOCRIT 27.7 % (37.9-51.0); HEMOGLOBIN 9.7 g/dL (13.5-17.0); MEAN CORPUSCULAR HEMOGLOBIN 35.5 pg (27.0-33.4); MEAN CORPUSCULAR HGB CONC 34.9 g/dL (32.0-36.0); MEAN CORPUSCULAR VOLUME 102 fl (80-97); PLATELET COUNT 209 10^3/uL (150-450); RED BLOOD COUNT 2.72 10^6/uL (4.35-5.55); RED CELL DISTRIBUTION WIDTH 12.8 % (11.5-14.0); WHITE BLOOD COUNT 5.3 10^3/uL (4.0-10.5)
[2017-12-17] MEDS: MORPHINE SULFATE 10 MG/ML INJ IM PRN (05:39)
[2017-12-17] MEDS: CEFAZOLIN 2 GM/D5W RTU 2 GM/50 ML RTUPB IV SCH ×2 (05:40→12:21)
[2017-12-17] MEDS: MORPHINE SULFATE 10 MG/ML INJ IV PRN (09:30)
[2017-12-17] MEDS: RIVAROXABAN 10 MG TABLET PO SCH (09:37)
[2017-12-17] MEDS: CELECOXIB 200 MG CAPSULE PO SCH (09:38)
--- NOTE | 2017-12-17 12:18 | PDOC PROGRESS REPORT ---
Subjective Progress Note for:: 12/17/17 Subjective:: Patient lying in bed comfortably. Patient has been taking oxycodone and morphine with relief. Pain tolerable. Denies fever chills or sweats. Reason For Visit: LEFT TIBIA FRACTURES Physical Exam Vital Signs: Temp Pulse Resp BP Pulse Ox 97.8 F 54 L 16 97/45 L 99 12/17/17 08:00 12/17/17 08:00 12/17/17 08:00 12/17/17 08:00 12/17/17 08:00 Intake & Output 12/16/17 12/17/17 12/18/17 06:59 06:59 06:59 Intake Total 2600 2300 Output Total 1275 350 Balance 1325 1950 Weight 72.9 kg 78.9 kg Musculoskeletal exam: PRESENT: other - Right foot: Dressing clean/dry/intact no erythema or drainage. Intact plantar flexion/dorsiflexion. Swelling and ecchymosis dorsally along the foot. No sensory deficits. Dorsalis pedis pulse 2+. Left lower extremity: Splint c/d/i Intact plantar flexion/dorsiflexion. Cap refill less than 2 seconds. Dorsalis pedis pulse 2+. Compartments soft and compressible no sign of compartment syndrome. No pain with passive stretch. No sensory deficits Results Laboratory Results: 12/17/17 04:56 12/15/17 04:00 12/17/17 04:56 WBC 5.3 RBC 2.72 L Hgb 9.7 L Hct 27.7 L MCV 102 H MCH 35.5 H MCHC 34.9 RDW 12.8 Plt Count 209 Impressions: Fluoroscopy 12/14/17 00:00 IMPRESSION: Left tibial nailing. Refer to operative note for further information. Tibia/Fibula X-Ray 12/14/17 00:00 IMPRESSION: Left tibial nailing. Refer to operative note for further information. Ankle X-Ray 12/14/17 08:47 IMPRESSION: Acute spiral fracture distal left tibial diaphysis and metaphysis with extension into the tibial plafond. Grossly nondisplaced nonangulated. Intra-articular air at the ankle joint without disruption of the ankle mortise alignment Acute transverse nondisplaced distal fibular metaphysis fracture Femur X-Ray 12/14/17 08:47 IMPRESSION: NEGATIVE STUDY OF THE RIGHT FEMUR. NO RADIOGRAPHIC EVIDENCE OF ACUTE INJURY. Foot X-Ray 12/14/17 08:47 IMPRESSION: No acute fracture. Soft tissue laceration near the Achilles attachment to the calcaneus without radiopaque foreign body. Right foot soft tissue gas is present. Assessment & Plan - Diagnosis (1) Fracture, posterior malleolus Qualifiers: Encounter type: initial encounter Fracture type: closed Is this a current diagnosis for this admission?: Yes (2) Open left tibial fracture Qualifiers: Encounter type: initial encounter Tibia location: shaft Open fracture type: open type I or II Fracture morphology: segmental Is this a current diagnosis for this admission?: Yes Plan: Postop day #3 status post irrigation and debridement with intramedullary nail left open tibia fracture, ORIF posterior malleolus 1. Physical therapy patient will begin toe-touch weightbearing on the right lower extremity with nonweightbearing on the left lower extremity. Anticipate once his foot wound on the right heels may return to weightbearing as tolerated. 2. Pain control oxycodone and morphine 3. IV antibiotics patient receiving Ancef transition to keflex 4. Xarelto for DVT prophylaxis DC home on aspirin 5. DC home today...once bedside commode and wheelchair have been obtained given patient's bilateral lower extremity injury. (3) Laceration of right foot Is this a current diagnosis for this admission?: Yes
[2017-12-17 12:21] VITALS: BP 116/59
--- NOTE | 2017-12-18 08:03 | PDOC DISCHARGE SUMMARY ---
General - Admit/Disc Date/PCP Admission Date/Primary Care Provider: 12/14/17 11:26 Discharge Date: 12/17/17 - Discharge Diagnosis (1) Fracture, posterior malleolus Is this a current diagnosis for this admission?: Yes (2) Open left tibial fracture Is this a current diagnosis for this admission?: Yes (3) Laceration of right foot Is this a current diagnosis for this admission?: Yes - Additional Information Resuscitation Status: Full Code Discharge Diet: As Tolerated Discharge Activity: No Driving, No Lifting Over 10 Pounds, No Lifting/Push/ Pulling, No tub bath Prescriptions: Aspirin [Aspirin 325 mg Tablet] 325 mg PO DAILY #21 tablet Cephalexin Monohydrate [Keflex 500 mg Capsule] 500 mg PO QID #20 capsule Oxycodone HCl/Acetaminophen [Percocet 5-325 mg Tablet] 1 - 2 tab PO ASDIR PRN # 35 tablet PRN Reason: Home Medications: Aspirin [Aspirin 325 mg Tablet] 325 mg PO DAILY #21 tablet 12/14/17 Cephalexin Monohydrate [Keflex 500 mg Capsule] 500 mg PO QID #20 capsule Oxycodone HCl/Acetaminophen [Percocet 5-325 mg Tablet] 1 - 2 tab PO ASDIR PRN # 35 tablet 12/14/17 History of Present Illness History of Present Illness: DIAZ MARR is a 32 year old male who was at work when a ow arch concrete slab mold fell onto his bilateral lower extremities causing a crush injury. Patient was brought by EMS. Was seen and evaluated by the emergency room which demonstrated fractures of his left lower extremity with an open wound anteriorly along with a open wound along the right foot. Patient denied pelvic discomfort. Denied abdominal discomfort. No headache dizziness or loss of consciousness. While in the emergency room patient received tetanus and Ancef the wounds were irrigated and patient was placed in a splint on his left and the right foot wound was reapproximated and placed in a splint. Patient states his pain is currently controlled with Dilaudid. He does have some numbness in the left and right foot. Pain initially was 10/10. Hospital Course Hospital Course: Patient was admitted to the orthopedic service on 12/14/17 after sustaining a crush injury to his bilateral lower extremities and a open fracture to his left tibia. Patientunderwent operative intervention 12/14/17 which included irrigation and debridement open tibia fracture with ORIF intra-articular distal tibia fracture, intramedullary nail tibial shaft fracture. Patient tolerated procedure well and was stable postoperatively. At that point patient was started on Xarelto, IV Ancef and pain medication. He was seen by physical therapy throughout his hospital course but given his bilateral injuries would require wheelchair for transportation until able to fully weight-bear on the right lower extremity. Patient progressed the problem and pain was controlled throughout his hospital course after receiving 72 hours of IV antibiotics decision was made for discharge. Physical Exam Vital Signs: Temp Pulse Resp BP Pulse Ox 98.4 F 60 14 116/59 L 98 12/17/17 16:04 12/17/17 16:04 12/17/17 16:04 12/17/17 16:04 12/17/17 16:04 Intake & Output 12/17/17 12/18/17 12/19/17 06:59 06:59 06:59 Intake Total 2300 50 Output Total 350 Balance 1950 50 Weight 78.9 kg General appearance: PRESENT: no acute distress Head exam: PRESENT: atraumatic, normocephalic Eye exam: PRESENT: conjunctiva pink, EOMI, PERRLA. ABSENT: scleral icterus Ear exam: PRESENT: normal external ear exam Mouth exam: PRESENT: moist, tongue midline Neck exam: PRESENT: full ROM. ABSENT: carotid bruit, JVD, lymphadenopathy, thyromegaly Cardiovascular exam: PRESENT: RRR. ABSENT: diastolic murmur, rubs, systolic murmur Pulses: PRESENT: normal dorsalis pedis pul, +2 pedal pulses bilateral Vascular exam: PRESENT: normal capillary refill GI/Abdominal exam: PRESENT: normal bowel sounds, soft. ABSENT: distended, guarding, mass, organolmegaly, rebound, tenderness Rectal exam: PRESENT: deferred Musculoskeletal exam: PRESENT: other - Right lower extremity: Dressing clean/dry /intact intact plantar flexion/dorsiflexion no sensory deficits. Ecchymosis on the dorsum of the foot. Cap refill less than 2 seconds. Dorsalis pedis pulse 2 + Left lower extremity: Splint clean/dry/intact. Intact plantar flexion/ dorsiflexion. No pain with passive stretch. No sign of compartment syndrome. Dorsalis pedis pulse 2+. No sensory deficits. Cap refill less than 2 seconds. Neurological exam: PRESENT: alert, awake, oriented to person, oriented to place , oriented to time, oriented to situation, CN II-XII grossly intact. ABSENT: motor sensory deficit Psychiatric exam: PRESENT: appropriate affect, normal mood. ABSENT: homicidal ideation, suicidal ideation Skin exam: PRESENT: dry, intact, warm. ABSENT: cyanosis, rash Results Laboratory Results: 12/17/17 04:56 12/15/17 04:00 Impressions: Fluoroscopy 12/14/17 00:00 IMPRESSION: Left tibial nailing. Refer to operative note for further information. Tibia/Fibula X-Ray 12/14/17 00:00 IMPRESSION: Left tibial nailing. Refer to operative note for further information. Ankle X-Ray 12/14/17 08:47 IMPRESSION: Acute spiral fracture distal left tibial diaphysis and metaphysis with extension into the tibial plafond. Grossly nondisplaced nonangulated. Intra-articular air at the ankle joint without disruption of the ankle mortise alignment Acute transverse nondisplaced distal fibular metaphysis fracture Femur X-Ray 12/14/17 08:47 IMPRESSION: NEGATIVE STUDY OF THE RIGHT FEMUR. NO RADIOGRAPHIC EVIDENCE OF ACUTE INJURY. Foot X-Ray 12/14/17 08:47 IMPRESSION: No acute fracture. Soft tissue laceration near the Achilles attachment to the calcaneus without radiopaque foreign body. Right foot soft tissue gas is present. Qualifiers - * PATIENT BEING DISCHARGED WITH ANY OF THE FOLLOWING DIAGNOSIS: No Plan Discharge Plan: Patient progressed appropriate throughout his hospital course. He will continue wheelchair for transfers at follow-up visit will begin weightbearing as tolerated on the right lower extremity. Patient will continue Keflex for bacterial prophylaxis, aspirin for DVT prophylaxis and Percocet as needed for pain. Patient is to call with any questions or concerns including increasing swelling, redness, pain, temperature greater than 101.5. Patient read above instructions understood above instructions and orthopedically stable for discharge to home 12/17/17
== END 2017-12-17 17:14 | disposition home or self-care (01) | DRG 494 ==
LOC: ER 08:33 → EH 11:26 → 5 19:45
PROVIDERS: ADMIT Orthopaedic Surgery; ATTEND Orthopaedic Surgery
PROC: 0HQMXZZ Repair Right Foot Skin, External Approach (ICD-10-PCS; 2017-12-14)
PROC: 3E0F73Z Introduction of Anti-inflammatory into Respiratory Tract, Via Natural or Artificial Opening (ICD-10-PCS; 2017-12-14)
PROC: 0QSH06Z Reposition Left Tibia with Intramedullary Internal Fixation Device, Open Approach (ICD-10-PCS; principal; 2017-12-14 13:45)
PROC: 0QSH04Z Reposition Left Tibia with Internal Fixation Device, Open Approach (ICD-10-PCS; 2017-12-14 13:45)
DX: S82.52XB Displaced fracture of medial malleolus of left tibia, initial encounter for open fracture type I or II (principal); S82.842A Displaced bimalleolar fracture of left lower leg, initial encounter for closed fracture; W20.8XXA Other cause of strike by thrown, projected or falling object, initial encounter; S91.311A Laceration without foreign body, right foot, initial encounter; F17.210 Nicotine dependence, cigarettes, uncomplicated; Z79.899 Other long term (current) drug therapy; Z23 Encounter for immunization
CPT/HCPCS: 01480; 36415; 80048; 80053; 85025; 85027; 85610; 85730; 90471; 90715; 94799; 96365; 96375; 99285; C1713; C1769; J0131; J0330; J0690; J1100; J1170; J1885; J2250; J2270; J2405; J2704; J3010; J3490; J7030